=== PATIENT | male | born 1970 | race Caucasian/White ===

== ENCOUNTER 2020-08-25 05:27 | Emergency (ER) | payer OTHER ==
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
--- NOTE | 2020-08-25 06:42 | CT ---
Head CT Technique: Multiple axial sections through the brain were obtained. Intravenous contrast was not utilized. Reconstructed coronal and sagittal images were obtained. Comparison: No prior intracranial imaging is available. Findings: Ventricles along with basal cisterns and sulci over the convexities appear within normal limits for the patient's age. No abnormal parenchymal densities are seen. No evidence of intracranial hemorrhage. No midline shift or mass-effect is seen. Bone window settings were reviewed. Visualized mastoid and paranasal sinuses show no discrete abnormality. No acute calvarial abnormality is appreciated. Impression: 1. Nothing acute is identified on noncontrast CT study of the brain. Diagnostic code #1
== END 2020-08-25 07:30 | disposition home or self-care (01) ==
LOC: JD.ED 05:27
DX: S09.90XA Unspecified injury of head, initial encounter (principal); S80.812A Abrasion, left lower leg, initial encounter; Z79.01 Long term (current) use of anticoagulants; Z79.899 Other long term (current) drug therapy; V58.5XXA Driver of pick-up truck or van injured in noncollision transport accident in traffic accident, initial encounter; Y92.410 Unspecified street and highway as the place of occurrence of the external cause
CPT/HCPCS: 70450; 70450-26; 99284; 99284-25

== ENCOUNTER 2022-07-30 15:46 | Emergency (ER) | payer BC, OTHER ==
[2022-07-30 17:58] LABS: CORONAVIRUS COVID-19 NAA NEGATIVE (NEGATIVE)
[2022-07-30] MEDS ORDERED: Penicillin V Potassium 500 MG Tab PO STA (18:29)
== END 2022-07-30 18:42 | disposition home or self-care (01) ==
LOC: JD.ED 15:46
DX: K04.7 Periapical abscess without sinus (principal); I10 Essential (primary) hypertension; Z20.822 Contact with and (suspected) exposure to COVID-19
CPT/HCPCS: 0241U; 36415; 80053; 85025; 86140; 99284; A9270; 99283